=== PATIENT | male | born 1950 | race Two or more races ===

== ENCOUNTER 2017-03-06 20:56 | Emergency (ER) | payer SELFPAY ==
--- NOTE | 2017-03-06 21:24 | ED Physician Chart ---
Chief Complaint/HPI - Patient Information Date Seen:: 03/06/17 Time Seen:: 21:14 Chief Complaint:: HEAD TRAUMA History of Present Illness:: THIS IS A 66 YO DIABETIC, HYPERTENSIVE, HYPERLIPIDEMIA MALE IS CONCERNED ABOUT LOC SUSTAINED DURING A FALL WHILE TRIMMING A TREE THIS PM. HE ALSO HAS MULTIPLE ABRASION ON THE LEGS AND ARMS. HE NOW IS HAVING NECK AND HEAD PAIN. Allergies:: Allergies Allergy/AdvReac Type Severity Reaction Status Date / Time UNOBTN - Unobtainable Allergy Verified 03/06/17 21:09 Vitals:: Vital Signs - 8 hr 03/06/17 21:00 Temp 97.6 F HR 77 RR 16 BP 147/76 O2 Sat % 99 Historian:: Patient, Family Member Review:: Nurse's Note Reviewed Review of Systems - Review of Systems General/Constitutional: No fever, No chills, No weight loss, No weakness, No diaphoresis, No edema, No loss of appetite Skin: No skin lesions, No rash, No bruising Head: Headache, No light-headedness Eyes: No loss of vision, No pain, No diplopia ENT: No earache, No nasal drainage, No sore throat, No tinnitus Neck: Neck pain, No swelling, No thyromegaly, No stiffness, No mass noted Cardio Vascular: No chest pain, No palpitations, No PND, No orthopnea, No edema Pulmonary: No SOB, No cough, No sputum, No wheezing GI: No nausea, No vomiting, No diarrhea, No pain, No melena, No hematochezia, No constipation, No hematemesis G/U: No dysuria, No frequency, No hematuria Musculoskeletal: No bone or joint pain, No back pain, No muscle pain Endocrine: No polyuria, No polydipsia Psychiatric: No prior psych history, No depression, No anxiety, No suicidal ideation Hematopoietic: No bruising, No lymphadenopathy Allergic/Immuno: No urticaria, No angioedema Neurological: No syncope, No focal symptoms, No weakness, No paresthesia, No headache, No seizure, No dizziness, No confusion, No vertigo Past Medical History - Past Medical History Obtainable: Yes Past Medical History: HTN, DM, Dyslipidemia Family History: None Social History: Non Smoker, No Alcohol, No Drug Use, Surgical History: other (RIGHT KNEE SURGERY) Family Medical History - Family Member Mother History Unknown: Yes Physical Exam - Physical Examination General/Constitutional: Awake, Well-developed, well-nourished, Alert, No distress, GCS 15, Non-toxic appearing, Ambulatory Other Head comments:: THERE ARE AREAS OF TENDERNESS ON THE OCCIPITAL AREA OF THE HEAD. Eyes: Lids, conjuctiva normal, PERRL, EOMI Skin: Nl inspection, No rash, No ecchymosis, Well hydrated, No lymphadenopathy Other Skin comments:: THERE ARE MULTIPLE ABRASIONS OF THE ARMS AND LEGS. ENMT: External ears, nose nl, Nasal exam nl, Lips, teeth, gums nl Neck: Full ROM w/o pain, No JVD, No nuchal rigidity, No bruit, No mass, No stridor Other Neck comments:: THERE IS PAIN ON THE LEFT POSTERIOR NECK WITH PAINFUL BUT NORMAL ROM. Respiratory: Nl effort/Exclusion, Clear to Auscultation, No Wheeze/Rhonchi/Rales Cardio Vascular: RRR, No murmur, gallop, rubs, NL S1 S2 GI: No tenderness/rebounding/guarding, No organomegaly, No hernia, Normal BS's, Nondistended, No mass/bruits, No McBurney tenderness : No CVA tenderness Extremities: No tenderness or effusion, Full ROM, normal strength in all extremities, No edema, Normal digits & nails Neuro/Psych: Alert/oriented, DTR's symmetric, Normal sensory exam, Normal motor strength, Judgement/insight normal, Mood normal, Normal gait, No focal deficits Misc: normal gait, Normal back, No paraspinal tenderness Labs/Radiology/EKG Results - Lab Results Results: Abnormal Lab Results 03/06/17 03/06/17 03/06/17 21:22 21:22 21:22 WBC 13.0 H RBC 4.45 Hgb 14.0 Hct 40.6 MCV 91.3 MCH 31.5 H MCHC Differential 34.5 RDW 12.4 Plt Count 249 MPV 7.4 Neutrophils % 83.5 H Lymphocytes % 9.3 L Monocytes % 5.6 Eosinophils % 1.2 Basophils % 0.4 PT 9.9 INR 0.95 PTT (Actin FS) 22.1 L Sodium Potassium Chloride Carbon Dioxide Anion Gap BUN Creatinine Est GFR ( Amer) Est GFR (Non-Af Amer) BUN/Creatinine Ratio Glucose Whole Bld Lactic Acid Calcium Total Bilirubin AST ALT Alkaline Phosphatase Troponin I Total Protein Albumin Globulin Albumin/Globulin Ratio Triglycerides 164 H Cholesterol 145 LDL Cholesterol Direct 89 HDL Cholesterol 32 03/06/17 03/06/17 03/06/17 21:22 21:22 21:22 WBC RBC Hgb Hct MCV MCH MCHC Differential RDW Plt Count MPV Neutrophils % Lymphocytes % Monocytes % Eosinophils % Basophils % PT INR PTT (Actin FS) Sodium 133 L Potassium 4.2 Chloride 102 Carbon Dioxide 27.0 Anion Gap 8.2 BUN 21 Creatinine 1.1 Est GFR ( Amer) > 60.0 Est GFR (Non-Af Amer) > 60.0 BUN/Creatinine Ratio 19.1 Glucose 260 H Whole Bld Lactic Acid 2.08 H* Calcium 9.4 Total Bilirubin 0.4 AST 29 ALT 21 Alkaline Phosphatase 86 Troponin I 0.01 Total Protein 7.2 Albumin 4.0 L Globulin 3.2 Albumin/Globulin Ratio 1.3 Triglycerides Cholesterol LDL Cholesterol Direct HDL Cholesterol - Radiology Results Results: ct scan of the neck and head = nad Assessment - Assessment General Assessment: TRAUMA TO THE NECK AND HEAD MILDLY DEHYDRATED AND THEREFORE HE WILL BE HYDRATED ORALLY. ED Septic Shock - . Is Septic Shock (SBP<90, OR Lactate>4 mmol\L) present?: No - <6hrs of presentation: Vital Signs: Vital Signs - 8 hr 03/06/17 21:00 Temp 97.6 F HR 77 RR 16 BP 147/76 O2 Sat % 99 Reassessment (Disposition) - Reassessment Reassessment Condition:: Improved - Aftercare/Follow up Instructions Aftercare/Follow-Up Instructions:: Counseled pt regarding lab results/diagnosis & need follow up, Refer to Discharge Instructions, Counseled pt & family regarding lab results/diagnosis & need follow up - Patient Disposition Discharge/Transfer:: Home Condition at Disposition:: Improved ED Discharge Plan - Patient Disposition Admit/Discharge/Transfer: PT DISCHARGED HOME Condition at Disposition: Improved Prescriptions: Ibuprofen [Motrin*] 600 mg PO Q8HR PRN #20 tab PRN Reason: Pain (Moderate) Azithromycin [Zithromax] 250 mg PO DAILY #6 tab Additional Instructions: FOLLOW UP WITH YOUR DOCTOR IN 2-3 DAYS AND TO COME BACK TO ER IF SYMPTOMS WORSEN
[2017-03-06 21:28] LABS: % BASOPHILS 0.4 % (0.0-2.0); % EOSINOPHILS 1.2 % (0.0-5.0); % LYMPHOCYTES 9.3 % (20.0-50.0); % MONOCYTES 5.6 % (2.0-10.0); % NEUTROPHILS 83.5 % (40.0-80.0); HEMATOCRIT 40.6 % (39.0-49.0); MEAN CELL VOLUME 91.3 fl (80-99); MEAN CORPUSCULAR HEMOGLOBIN 31.5 pg (27.0-31.0); MEAN CORPUSCULAR HGB CONC 34.5 pg (28.0-36.0); MEAN PLATELET VOLUME 7.4 fl; NEUTROPHILE ABSOLUTE 10.8 Th/cmm (1.8-8.0); PLATELET COUNT 249 Th/cmm (150-400); RED BLOOD COUNT 4.45 Mil/cmm (3.80-5.80); RED CELL DISTRIBUTION WIDTH 12.4 % (11.5-20.0)
[2017-03-06] MEDS ORDERED: Triple Antibiotic 0.94 gm Pkt TP ONE (21:41)
[2017-03-06 21:43] LABS: INR 0.95 (0.5-1.4); PROTHROMBIN TIME (TEST) 9.9 SECONDS (9.5-11.5)
[2017-03-06] MEDS ORDERED: Triple Antibiotic 0.94 gm Pkt TP STA (21:43)
[2017-03-06 21:44] LABS: CHOLESTEROL 145 mg/dL (<200); TRIGLYCERIDES 164 mg/dL (<150)
[2017-03-06 21:45] LABS: ALB/GLOB RATIO 1.3 (1.0-1.8); ALKALINE PHOSPHATASE 86 U/L (34-104); ANION GAP 8.2 (7.0-16.0); BILIRUBIN,TOTAL 0.4 mg/dL (0.3-1.0); BUN - UREA NITROGEN 21 mg/dL (7-25); BUN/CREATININE RATIO 19.1; CALCIUM SERUM 9.4 mg/dL (8.6-10.3); CHLORIDE 102 mEq/L (98-107); CREATININE - SERUM 1.1 mg/dL (0.7-1.3); GLUCOSE 260 mg/dL (70-105); POTASSIUM SERUM 4.2 mEq/L (3.5-5.1); SGOT 29 U/L (13-39); SGPT/ALT 21 U/L (7-52); SODIUM SERUM 133 mEq/L (136-145)
--- NOTE | 2017-03-07 08:53 | Diagnostic Imaging Report ---
Head CT without intravenous contrast Indication: Trauma Comparison: None Technique: Axial images were obtained from the vertex to the skull base without IV contrast. Coronal reconstructions were made. Total DLP: 535, [id number] FINDINGS: Images of the brain obtained without contrast demonstrate no acute hemorrhage. No mass lesions identified. The ventricles and basal cisterns are patent. The gaviria-white matter differentiation is preserved. There is no mass effect or midline shift. No skull fractures identified. No soft tissue swelling. There is mild mucosal thickening paranasal sinuses. IMPRESSION: No acute intracranial abnormality.
--- NOTE | 2017-03-07 08:56 | Diagnostic Imaging Report ---
CT cervical spine without IV contrast HISTORY: Trauma COMPARISON: None Technique: Axial images were obtained from the skull base to the upper thoracic spine without IV contrast. Multiplanar reconstructions were made. Total DLP: 484, CTDI21.9 FINDINGS: Images of the cervical spine obtained without contrast demonstrate no evidence of an acute fracture or subluxation. There is diffuse bony demineralization. Chronic vertebral body loss of height is seen extending from C3 through C7. Degenerative changes are seen including large anterior marginal osteophytic spurs throughout the cervical spine. There is mild disc space loss of height at C6/C7. Vacuum phenomenon is also seen at these levels within the vertebral bodies posteriorly. There is straightening of the cervical lordosis. The lung apices are clear. IMPRESSION: No evidence of an acute fracture or subluxation. Chronic vertebral body loss of height extending from C3 through C7. Diffuse bony demineralization. Please correlate with clinical findings Degenerative changes.
== END 2017-03-06 23:10 | disposition home or self-care (01) ==
LOC: ER 20:56
DX: E86.0 Dehydration (principal); R51 Headache; M54.2 Cervicalgia; I10 Essential (primary) hypertension; E11.9 Type 2 diabetes mellitus without complications; E78.5 Hyperlipidemia, unspecified
CPT/HCPCS: 36415-UA; 70450-TC; 72125-TC; 80053-TC; 80061-TC; 83036-90; 83605; 84484-TC; 85025-TC; 85610-TC; 85730-TC; A4217